=== PATIENT | female | born 2000 | race Two or more races ===

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

== ENCOUNTER 2018-02-01 10:25 | Emergency (ER) | payer MEDICAID ==
[~2018-02-01] VITALS: Ht 157.5 cm; Wt 124.0 kg
[2018-02-01 10:47] VITALS: BP 156/97
[2018-02-01 11:34] LABS: BASOPHILS # (AUTO) 0.04 x10^3/uL (0-0.3); BASOPHILS % (AUTO) 0 % (0-1); EOSINOPHILS # (AUTO) 0.12 x10^3/uL (0-0.8); EOSINOPHILS % (AUTO) 1 % (1-7); LYMPHOCYTES # (AUTO) 3.02 x10^3/uL (1-6.1); LYMPHOCYTES % (AUTO) 26 % (22-44); MD NO; MEAN CORPUSCULAR HEMOGLOBIN 30.5 pg (27.0-34.8); MEAN CORPUSCULAR VOLUME 92.5 fL (80-100); MEAN PLATELET VOLUME 8.6 fL (7.4-10.4); MONOCYTES # (AUTO) 0.64 x10^3/uL (0-1.4); MONOCYTES % (AUTO) 6 % (2-9); NEUTROPHILS # (AUTO) 7.96 x10^3/uL (1.8-8.0); NEUTROPHILS % (AUTO) 68 % (42-75); PLATELET COUNT 271 x10^3/uL (130-400); RED BLOOD COUNT 4.86 x10^6/uL (3.82-5.3); RED CELL DISTRIBUTION WIDTH 13.6 % (9.6-15.2)
[2018-02-01 11:44] LABS: ALBUMIN 3.5 g/dL (3.4-5.0); ANION GAP 7 mmol/L (5-15); CALCIUM 8.4 mg/dL (8.5-10.1); CHLORIDE 109 mmol/L (98-107); CREATININE 0.55 mg/dL (0.55-1.02)
== END 2018-02-01 13:19 | disposition home or self-care (01) ==
LOC: ED 13:19
DX: L73.9 Follicular disorder, unspecified (principal)
CPT/HCPCS: 36415; 80048; 82040; 85025; 99283

== ENCOUNTER 2018-11-28 17:03 | Inpatient (IN) | payer MEDICAID ==
[~2018-11-28] VITALS: Ht 157.5 cm; Wt 128.8 kg
--- NOTE | 2018-11-28 17:30 | NUR ---
PT AFEBRILE IN TRIAGE BUT HR IN 130s. REPORTS SHE HAD A UTI ABOUT A WEEK AGO AND FINISHED A COURSE OF ABX.
--- NOTE | 2018-11-28 17:35 | NUR ---
ERP AT NOW.
[2018-11-28] MEDS ORDERED: SODIUM CHLORIDE FLUSH 10ML SYR IVF ONE (18:00)
[2018-11-28] MEDS ORDERED: SODIUM CHLORIDE 0.9% 1,000ML IVBOLUS ONE ×2 (18:00→20:00)
[2018-11-28 18:06] LABS: BASOPHILS # (AUTO) 0.02 x10^3/uL (0-0.3); BASOPHILS % (AUTO) 0 % (0-1); EOSINOPHILS # (AUTO) 0.01 x10^3/uL (0-0.8); EOSINOPHILS % (AUTO) 0 % (1-7); LYMPHOCYTES % (AUTO) 14 % (22-44); MD NO; MEAN CORPUSCULAR HEMOGLOBIN 31.1 pg (27.0-34.8); MEAN CORPUSCULAR VOLUME 94.2 fL (80-100); MEAN PLATELET VOLUME 8.4 fL (7.4-10.4); MONOCYTES # (AUTO) 0.33 x10^3/uL (0-1.4); MONOCYTES % (AUTO) 3 % (2-9); NEUTROPHILS # (AUTO) 9.86 x10^3/uL (1.8-8.0); NEUTROPHILS % (AUTO) 83 % (42-75); PLATELET COUNT 252 x10^3/uL (130-400); RED BLOOD COUNT 4.83 x10^6/uL (3.82-5.3); RED CELL DISTRIBUTION WIDTH 13.8 % (9.6-15.2)
[2018-11-28 18:11] LABS: ALANINE AMINOTRANSFERASE 20 U/L (12-78); ALBUMIN 3.7 g/dL (3.4-5.0); ANION GAP 6 mmol/L (5-15); CALCIUM 8.5 mg/dL (8.5-10.1); CHLORIDE 106 mmol/L (98-107); CREATININE 0.85 mg/dL (0.55-1.02)
--- NOTE | 2018-11-28 18:12 | NUR ---
PT TO US VIA LYLA.
[2018-11-28 18:16] LABS: ALKALINE PHOSPHATASE 115 U/L (45-117); BILIRUBIN,TOTAL 0.5 mg/dL (0.2-1.0)
--- NOTE | 2018-11-28 19:00 | NUR ---
PT RETURNS FROM US.
[2018-11-28 19:21] LABS: CULTURE INDICATED? YES; MICROSCOPIC INDICATED
[2018-11-28] MEDS ORDERED: CEFTRIAXONE PMX 1GM/50ML 50 ML IV ONE (20:00)
[2018-11-28] MEDS ORDERED: CEFTRIAXONE PMX 1GM/50ML 50 ML ONE (20:01)
--- NOTE | 2018-11-28 20:13 | NUR ---
ERP WAS IN FOR RECHECK. THEN ADMITTING MD WAS IN TO SEE PT AND ADVISED CHANGING ABX (UTI RESISTANT TO ROCEPHIN).
[2018-11-28] MEDS ORDERED: LEVOFLOXACIN/PMX 750MG/150ML 150 ML ONE (20:15)
[2018-11-28] MEDS ORDERED: LEVOFLOXACIN/PMX 750MG/150ML 150 ML IV SCH ×2 (20:30)
[2018-11-28] MEDS ORDERED: morphine SULFATE 10 MG/ML, 1ML IVPush PRN (20:30)
--- NOTE | 2018-11-28 20:32 | NUR ---
2ND LITER NS BOLUS INFUSING AND LEVAQUIN INFUSING PER ORDERS. PT UNDERSTANDS PLAN FOR ADMISSION. PANTERA XIAO.
[2018-11-28 21:41] LABS: AMPHETAMINE SCREEN, URINE Negative (Negative); BARBITURATE SCREEN, URINE Negative (Negative); BENZODIAZEPINE SCREEN, URINE Negative (Negative); CANNABINOID SCREEN, URINE Negative (Negative); COCAINE SCREEN, URINE Negative (Negative); METHADONE SCREEN, URINE Negative (Negative); OPIATE SCREEN, URINE Negative (Negative)
--- NOTE | 2018-11-28 21:43 | NUR ---
PT AMBULATED TO BR WITHOUT DIFFICULTY.
[2018-11-28 22:20] VITALS: BP 113/70
[2018-11-28] MEDS: ENOXAPARIN 30 MG/0.3 ML SQ SCH (22:38)
[2018-11-28] MEDS: KETOROLAC 30 MG/1 ML IV PRN (22:38)
[2018-11-28] MEDS: LACTATED RINGERS 1,000 ML IV SCH (22:38)
[2018-11-28 22:58] LABS: RAPID INFLUENZA A Negative (Negative); RAPID INFLUENZA B Negative (Negative)
[2018-11-29] VITALS (8 sets, daily range): BP systolic 102–143; BP diastolic 49–94
[2018-11-29] MEDS: ONDANSETRON 2MG/ML, 2ML IVPush PRN ×3 (00:54→19:34)
[2018-11-29] MEDS: ACETAMINOPHEN 325 MG TABLET PO PRN (01:16)
[2018-11-29] MEDS ORDERED: SODIUM CHLORIDE 0.9% 1,000ML IVBOLUS ONE ×2 (02:00→15:30)
[2018-11-29] MEDS: KETOROLAC 30 MG/1 ML IV PRN ×2 (04:35→13:23)
[2018-11-29] MEDS: LACTATED RINGERS 1,000 ML IV SCH ×2 (05:29→12:01)
[2018-11-29 05:34] LABS: MEAN CORPUSCULAR HGB CONC 32.9 g/dL (32.4-35.8); MEAN CORPUSCULAR VOLUME 94.2 fL (80-100); MEAN PLATELET VOLUME 8.6 fL (7.4-10.4); PLATELET COUNT 212 x10^3/uL (130-400); RED CELL DISTRIBUTION WIDTH 13.9 % (9.6-15.2)
[2018-11-29 05:43] LABS: ANION GAP 9 mmol/L (5-15); CALCIUM 7.4 mg/dL (8.5-10.1); CHLORIDE 109 mmol/L (98-107)
[2018-11-29 05:51] LABS: MD YES
[2018-11-29 05:53] LABS: BAND#(MANUAL) 4.01 x10^3/uL; BANDS%(MANUAL) 21 % (0-7); LYMPH#(MANUAL) 0.57 x10^3/uL (1-6.1); LYMPHS% (MANUAL) 3 % (22-44); MONOS#(MANUAL) 1.15 x10^3/uL (0.3-2.7); MONOS% (MANUAL) 6 % (2-9); SEG#(MANUAL) 13.37 x10^3/uL (1.8-8); SEGS% (MANUAL) 70 % (42-75)
[2018-11-29 05:55] LABS: <PLATELET ESTIMATE> ADEQUATE; <PLT MORPHOLOGY> NORMAL PLT MORPH; <RBC MORPHOLOGY> NORMAL
[2018-11-29] MEDS: PIPERACILLIN/TAZO/PMX 3.375GM 50 ML IV SCH ×2 (06:07→12:01)
[2018-11-29] MEDS: ENOXAPARIN 30 MG/0.3 ML SQ SCH ×2 (09:21→22:05)
[2018-11-29] MEDS: SENNA/DOCUSATE TABLET PO SCH (09:21)
[2018-11-29] MEDS: ERTAPENEM 1 GM in SODIUM CHLORIDE 0.9% 50 ML IV SCH (15:20)
[2018-11-29] MEDS: SODIUM CHLORIDE 0.9% 1,000 ML IV SCH (17:53)
[2018-11-29] MEDS ORDERED: LEVOFLOXACIN/PMX 750MG/150ML 150 ML IV SCH (20:30)
[2018-11-30] MEDS: SODIUM CHLORIDE 0.9% 1,000 ML IV SCH ×4 (00:47→21:35)
[2018-11-30 02:58] VITALS: BP 151/97
[2018-11-30] MEDS: ONDANSETRON 2MG/ML, 2ML IVPush PRN ×4 (03:16→21:34)
[2018-11-30 07:43] VITALS: BP 116/79
[2018-11-30] MEDS: SENNA/DOCUSATE TABLET PO SCH (08:32)
[2018-11-30] MEDS: ENOXAPARIN 30 MG/0.3 ML SQ SCH ×2 (08:32→21:15)
[2018-11-30] MEDS: ACETAMINOPHEN 325 MG TABLET PO PRN ×2 (12:39→21:33)
[2018-11-30 12:52] VITALS: BP 149/89
[2018-11-30] MEDS: ERTAPENEM 1 GM in SODIUM CHLORIDE 0.9% 50 ML IV SCH (14:56)
[2018-11-30 19:15] VITALS: BP 153/99
[2018-11-30] MEDS ORDERED: METOCLOPRAMIDE 5 MG/ML, 2ML IVPush ONE (23:30)
[2018-12-01 00:58] VITALS: BP 132/90
[2018-12-01] MEDS: SODIUM CHLORIDE 0.9% 1,000 ML IV SCH ×3 (04:10→19:58)
[2018-12-01 07:01] VITALS: BP 135/92
[2018-12-01 07:39] LABS: ALBUMIN 2.5 g/dL (3.4-5.0); ANION GAP 5 mmol/L (5-15); BASOPHILS # (AUTO) 0.02 x10^3/uL (0-0.3); BASOPHILS % (AUTO) 0 % (0-1); CALCIUM 7.9 mg/dL (8.5-10.1); CHLORIDE 108 mmol/L (98-107); EOSINOPHILS # (AUTO) 0.02 x10^3/uL (0-0.8); EOSINOPHILS % (AUTO) 0 % (1-7); LYMPHOCYTES # (AUTO) 1.36 x10^3/uL (1-6.1); LYMPHOCYTES % (AUTO) 12 % (22-44); MD NO; MEAN CORPUSCULAR HEMOGLOBIN 30.4 pg (27.0-34.8); MEAN CORPUSCULAR HGB CONC 32.5 g/dL (32.4-35.8); MEAN CORPUSCULAR VOLUME 93.5 fL (80-100); MEAN PLATELET VOLUME 8.3 fL (7.4-10.4); MONOCYTES # (AUTO) 0.84 x10^3/uL (0-1.4); MONOCYTES % (AUTO) 7 % (2-9); NEUTROPHILS # (AUTO) 9.11 x10^3/uL (1.8-8.0); NEUTROPHILS % (AUTO) 80 % (42-75); PLATELET COUNT 220 x10^3/uL (130-400); RED BLOOD COUNT 3.81 x10^6/uL (3.82-5.3)
[2018-12-01 07:43] LABS: ALANINE AMINOTRANSFERASE 22 U/L (12-78); ALKALINE PHOSPHATASE 96 U/L (45-117); BILIRUBIN,TOTAL 0.7 mg/dL (0.2-1.0); CREATININE 0.66 mg/dL (0.55-1.02); TOTAL PROTEIN 6.7 g/dL (6.4-8.2)
[2018-12-01] MEDS: ENOXAPARIN 40 MG/0.4 ML SQ SCH ×2 (07:58→19:58)
[2018-12-01] MEDS: SENNA/DOCUSATE TABLET PO SCH (08:25)
[2018-12-01] MEDS: ACETAMINOPHEN 325 MG TABLET PO PRN ×2 (11:35→20:16)
[2018-12-01 12:32] VITALS: BP 137/93
[2018-12-01] MEDS: ERTAPENEM 1 GM in SODIUM CHLORIDE 0.9% 50 ML IV SCH (16:22)
[2018-12-01 20:06] VITALS: BP 137/93
[2018-12-02] MEDS: SODIUM CHLORIDE 0.9% 1,000 ML IV SCH (00:10)
[2018-12-02 01:27] VITALS: BP 122/81
[2018-12-02 05:59] LABS: BASOPHILS # (AUTO) 0.03 x10^3/uL (0-0.3); BASOPHILS % (AUTO) 0 % (0-1); EOSINOPHILS # (AUTO) 0.03 x10^3/uL (0-0.8); EOSINOPHILS % (AUTO) 0 % (1-7); LYMPHOCYTES # (AUTO) 2.02 x10^3/uL (1-6.1); LYMPHOCYTES % (AUTO) 18 % (22-44); MD NO; MEAN CORPUSCULAR HEMOGLOBIN 30.4 pg (27.0-34.8); MEAN CORPUSCULAR HGB CONC 32.8 g/dL (32.4-35.8); MEAN CORPUSCULAR VOLUME 92.7 fL (80-100); MEAN PLATELET VOLUME 7.9 fL (7.4-10.4); MONOCYTES # (AUTO) 0.85 x10^3/uL (0-1.4); MONOCYTES % (AUTO) 8 % (2-9); NEUTROPHILS % (AUTO) 74 % (42-75); PLATELET COUNT 214 x10^3/uL (130-400); RED BLOOD COUNT 3.83 x10^6/uL (3.82-5.3); RED CELL DISTRIBUTION WIDTH 13.9 % (9.6-15.2)
[2018-12-02 06:12] LABS: ANION GAP 7 mmol/L (5-15); CALCIUM 7.8 mg/dL (8.5-10.1); CHLORIDE 105 mmol/L (98-107); CREATININE 0.59 mg/dL (0.55-1.02)
[2018-12-02] MEDS: ACETAMINOPHEN 325 MG TABLET PO PRN (06:55)
[2018-12-02 08:00] VITALS: BP 135/70
[2018-12-02] MEDS: SENNA/DOCUSATE TABLET PO SCH (08:26)
[2018-12-02] MEDS: ENOXAPARIN 40 MG/0.4 ML SQ SCH ×2 (08:26→22:24)
[2018-12-02] MEDS: CIPROFLOXACIN 500 MG TABLET PO SCH ×2 (08:26→22:24)
[2018-12-02] MEDS ORDERED: POTASSIUM CHLORIDE 40 MEQ in SODIUM CHLORIDE 0.9% 500 ML IV ONE (12:00)
[2018-12-02 14:00] VITALS: BP 140/76
[2018-12-02 19:12] VITALS: BP 142/87
[2018-12-03 01:51] VITALS: BP 137/89
[2018-12-03 05:16] LABS: ANION GAP 4 mmol/L (5-15); CALCIUM 7.7 mg/dL (8.5-10.1); CHLORIDE 107 mmol/L (98-107); CREATININE 0.54 mg/dL (0.55-1.02)
[2018-12-03] MEDS ORDERED: POTASSIUM CHLORIDE 20 MEQ TAB.ER.PRT PO STA (07:41)
[2018-12-03] MEDS ORDERED: POTASSIUM CHLORIDE 40 MEQ in SODIUM CHLORIDE 0.9% 500 ML IV ONE (08:00)
[2018-12-03 08:15] VITALS: BP 131/88
[2018-12-03] MEDS: CIPROFLOXACIN 500 MG TABLET PO SCH ×2 (08:17→20:09)
[2018-12-03] MEDS: SENNA/DOCUSATE TABLET PO SCH (08:17)
[2018-12-03] MEDS: ENOXAPARIN 40 MG/0.4 ML SQ SCH ×2 (10:37→20:20)
[2018-12-03 14:38] VITALS: BP 131/91
[2018-12-03] MEDS ORDERED: POTASSIUM CHLORIDE 20 MEQ TAB.ER.PRT PO ONE (17:30)
[2018-12-03] MEDS ORDERED: MAGNESIUM SULFATE PMX 2GM/50ML 50 ML IV ONE (18:00)
[2018-12-03 20:26] VITALS: BP 134/98
[2018-12-04 00:32] VITALS: BP 144/95
[2018-12-04 06:19] LABS: ANION GAP 9 mmol/L (5-15); CALCIUM 8.3 mg/dL (8.5-10.1); CHLORIDE 106 mmol/L (98-107); CREATININE 0.48 mg/dL (0.55-1.02)
[2018-12-04] MEDS ORDERED: POTASSIUM CHLORIDE 20 MEQ TAB.ER.PRT PO ONE (08:00)
[2018-12-04] MEDS ORDERED: POTASSIUM CHLORIDE 40 MEQ in SODIUM CHLORIDE 0.9% 500 ML IV ONE (08:00)
[2018-12-04] MEDS ORDERED: MAGNESIUM SULFATE PMX 2GM/50ML 50 ML IV ONE (08:00)
[2018-12-04 08:19] VITALS: BP 144/67
[2018-12-04 08:36] VITALS: BP 130/89
[2018-12-04] MEDS: SENNA/DOCUSATE TABLET PO SCH (08:44)
[2018-12-04] MEDS: CIPROFLOXACIN 500 MG TABLET PO SCH ×2 (08:44→19:50)
[2018-12-04] MEDS: ENOXAPARIN 40 MG/0.4 ML SQ SCH (10:00)
[2018-12-04 13:22] VITALS: BP 130/87
[2018-12-04] MEDS ORDERED: ONDA4TAB7 PO (18:45)
[2018-12-04] MEDS ORDERED: POTA20TA6 PO (18:45)
[2018-12-04] MEDS ORDERED: CIPR500T87 PO (18:45)
[2018-12-04] MEDS ORDERED: MAGN400T50 PO (18:45)
[2018-12-04] MEDS ORDERED: ACET325T26 PO (18:45)
== END 2018-12-04 19:53 | disposition home or self-care (01) | DRG 872 ==
LOC: ED 17:47 → EDIP 20:03 → 5SO 22:30 → 4WST 11-29 21:33
PROVIDERS: ADMIT Family Medicine; ATTEND Family Medicine
PROC: 0T9B70Z Drainage of Bladder with Drainage Device, Via Natural or Artificial Opening (ICD-10-PCS; principal; 2018-11-28)
DX: A41.9 Sepsis, unspecified organism (principal); Z68.43 Body mass index [BMI] 50.0-59.9, adult; N10 Acute pyelonephritis; Z16.12 Extended spectrum beta lactamase (ESBL) resistance; E66.01 Morbid (severe) obesity due to excess calories; E87.6 Hypokalemia; R65.20 Severe sepsis without septic shock; Z82.49 Family history of ischemic heart disease and other diseases of the circulatory system; Z83.3 Family history of diabetes mellitus; Z87.440 Personal history of urinary (tract) infections
CPT/HCPCS: 36415; 71045; 76700; 76830; 80048; 80053; 80307; 81001; 83605; 83690; 83735; 84132; 84145; 84702; 85025; 87040; 87077; 87086; 87184; 87186; 87400; 93005; 96360; G0378; J1335; J1650; J1885; J1956; J2405; J2543; J3480; J3475; J7030; J7040; J7120